=== PATIENT | female | born 1960 | race Caucasian/White ===

== ENCOUNTER → 2017-01-09 | Outpatient (CLI) | payer OTHER ==
[~2017-01-09] MED LIST: LRT5 PO; NITR-5 PO
== END | disposition home or self-care (01) ==
LOC: C.LABSPEC 17:03
PROVIDERS: ATTEND Internal Medicine
DX: R39.9 Unspecified symptoms and signs involving the genitourinary system (principal)

== ENCOUNTER 2020-08-14 02:16 | Observation (INO) ==
[2020-08-14] MEDS ORDERED: dilTIAZem HCl 5 MG/ML 5 ML VIAL IV STA (02:26)
[2020-08-14] MEDS ORDERED: STAT IV Infusion **Titration per Protocol STA (02:26)
[2020-08-14] MEDS ORDERED: SODIUM CHLORIDE 0.9% 1000ML 1,000 ML IV SCH (02:30)
[2020-08-14] MEDS ORDERED: dilTIAZem HCL 125 MG in DEXTROSE 5% 100 ML IV SCH (02:30)
[2020-08-14 02:48] LABS: Hematocrit (blood only) 31.2 % (37-47); Hemoglobin 10.2 g/dL (12.0-16.0); Mean Corpuscular Hemoglobin 29.3 pg (25-34); Mean Corpuscular Hgb Conc 32.7 g/dL (32-36); Mean Corpuscular Volume 89.7 fL (80-100); Mean Platelet Volume 8.1 fL (7.4-10.4); Platelet Count 495 K/uL (130-400); RDW Standard Deviation 52.3 fL (36.4-46.3); Red Blood Count 3.48 M/uL (4.2-5.4)
[2020-08-14 03:09] LABS: INR 1.2 (0.9-1.1); Partial Thromboplastin Ratio 1.7; Prothrombin Time 12.6 Seconds (9.0-12.0)
[2020-08-14 03:14] LABS: Albumin Level 2.2 gm/dl (3.4-5.0); BUN Creatinine Ratio 18.5 (10-20); Calcium 8.8 mg/dl (8.5-10.1); Creatinine Clr Calc Pharmacy 90.5 ml/min; Est GFR (African American) 99.7; Magnesium 2.4 mg/dl (1.8-2.4)
[2020-08-14 03:16] LABS: Partial Thromboplastin Time 46.6 Seconds (21.0-31.0)
[2020-08-14] MEDS ORDERED: POTASSIUM CHLORIDE CRTAB 20 MEQ TABCR PO STA (03:16)
[2020-08-14 03:27] LABS: Albumin Globulin Ratio 0.4 (0.9-2); Bilirubin,Total 0.3 mg/dl (0.2-1); Globulin 5.3 gm/dl (2.5-4.0); Thyroid Stimulating Hormone 1.11 uIu/ml (0.300-4.500); Total Protein 7.5 gm/dl (6.4-8.2); Troponin I 0.021 ng/ml (0-0.045)
[2020-08-14] MEDS: POTASSIUM CHLORIDE / WTR 10 MEQ/100 ML PLCT IV SCH ×2 (03:29→04:26)
[2020-08-14 03:44] LABS: Basophils # (auto) 0.01 K/uL (0-0.2); Basophils % (auto) 0.1 %; Eosinophils # (auto) 0.27 K/uL (0-0.5); Eosinophils % (auto) 2.4 %; Immature Granulocytes # (auto) 0.75 K/uL (0.00-0.02); Immature Granulocytes % (auto) 6.8 %; Lymphocytes # (auto) 1.77 K/uL (1.2-3.4); Lymphocytes % (auto) 15.9 %; Monocytes # (auto) 0.96 K/uL (0.11-0.59); Monocytes % (auto) 8.6 %; Neutrophils # (auto) 7.34 K/uL (1.4-6.5); Neutrophils % (auto) 66.2 %
[2020-08-14] MEDS ORDERED: ACETAMINOPHEN 500 MG TAB PO STA (04:16)
[2020-08-14 04:30] LABS: Appearance Urine Clear (Clear); Bacteria Urine Automated Negative (Negative); Bilirubin Urine Negative (Negative); Blood Urine Negative (Negative); Color Urine Yellow; Epithelial Cell Urine Auto >30 /lpf (0-5); Glucose Urine UA Negative (Negative); Ketones Urine Trace (Negative); Leukocyte Esterase Urine Trace (Negative); Nitrite Urine Negative (Negative); Protein Urine Negative (Negative); RBC Urine Automated 0-4 /hpf (0-4); Specific Gravity Urine 1.013 (1.000-1.030); Urobilinogen Urine Negative (Negative)
--- NOTE | 2020-08-14 04:42 | History & Physical Report ---
Date of Service August 14, 2020 Assessment & Plan (1) Atrial fibrillation with rapid ventricular response: Atrial fibrillation with RVR- The patient will be admitted to telemetry for serial cardiac enzymes, serial EKG's, cardiac rhythm monitoring and a 2-D echocardiogram with Dopplers. Optimize potassium with oral and IV supplementation. Given Cardizem 25 mg IV bolus and presently on Cardizem drip at 5 mg/h. Present on Admission?: Yes (2) Hypokalemia: As above Present on Admission?: Yes (3) History of recent stroke: History of recent hemorrhagic stroke/on dabigatran therapy- Plan would be for return to [facility] after hospitalization Continue baclofen, duloxetine, gabapentin and Keppra. Present on Admission?: Yes (4) On dabigatran therapy: See above Present on Admission?: Yes (5) Diabetes mellitus: Placed on Accu-Cheks before meals and at bedtime with NovoLog coverage per scale Present on Admission?: Yes (6) Depression: Continue duloxetine and gabapentin Present on Admission?: Yes (7) Non-specific colitis: Continue mesalamine and prednisone. Hold on stress dose steroids for now Present on Admission?: Yes History of Present Illness Chief Complaint: The patient is referred from [facility], where she was found to have atrial fibrillation with RVR during routine vitals assessment this evening Primary Care Provider: TRAE Gomes The patient is a 60-year-old female with a past medical history including dural sinus thrombosis, intraparenchymal hemorrhage of brain, acute left-sided weakness, colitis, obesity, vitamin D deficiency, acid reflux, occipital neuralgia, depression and chronic migraine with aura. The patient had presented to [facility] emergency department on 07/27/2020 and was diagnosed with an acute stroke. She was referred to [facility], after treatment there was referred to [facility]. As noted above, she was found to be in atrial fibrillation with RVR during routine vitals assessment this evening and sent to the emergency department for assessment. Patient denies any recent episodes of palpitations, and denies any history of atrial fibrillation. Allergies Allergy/AdvReac Type Severity Reaction Status Date / Time montelukast [From Singulair] Allergy Mild "pains in Verified 07/27/20 08:38 stomach" Home Medications Medication Instructions Recorded Confirmed Type hydrocortisone 2.5 % topical cream 1 appln VA BID PRN #30 gm 01/06/20 08/14/20 Rx with perineal applicator pantoprazole 40 mg PO DAILYBB 07/09/20 08/14/20 History prednisone 10 mg tablet 10 mg PO DAILY #124 tab 07/19/20 08/14/20 Rx acetaminophen 650 mg PO Q4 PRN 08/14/20 08/14/20 History ascorbic acid (vitamin C) [Vitamin 500 mg PO BID 08/14/20 08/14/20 History C] baclofen 5 mg PO TID 08/14/20 08/14/20 History calcium carbonate [Tums 500] 500 mg PO TID PRN 08/14/20 08/14/20 History cholecalciferol (vitamin D3) 50 mcg PO DAILY 08/14/20 08/14/20 History [Vitamin D3] dabigatran etexilate [Pradaxa] 150 mg PO BID 08/14/20 08/14/20 History docusate sodium 100 mg PO BID 08/14/20 08/14/20 History duloxetine 30 mg PO BID 08/14/20 08/14/20 History famotidine 20 mg PO DAILY 08/14/20 08/14/20 History gabapentin 300 mg PO HS 08/14/20 08/14/20 History hydrocortisone acetate [Anusol-HC] 25 mg VA HS 08/14/20 08/14/20 History insulin regular human [Humulin R 1 sliding scale dose SUBCUT ACHS 08/14/20 08/14/20 History Regular U-100 Insuln] levetiracetam 1,000 mg PO BID 08/14/20 08/14/20 History lidocaine [Lidoderm] 1 patch TOPICAL DAILY 08/14/20 08/14/20 History melatonin 3 mg PO HS 08/14/20 08/14/20 History mesalamine 400 mg PO QID 08/14/20 08/14/20 History ondansetron 4 mg PO Q4 PRN 08/14/20 08/14/20 History sulfamethoxazole-trimethoprim 1 tab PO BID 08/14/20 08/14/20 History [Bactrim DS] zinc sulfate 220 mg PO DAILY 08/14/20 08/14/20 History Past Med/Surg History Medical History Abdominal pain, vomiting, and diarrhea reason for scheduled colonoscopy Chronic migraine with aura Degenerative disc disease Depression Hypoalbuminemia Menopause Obesity Recent urinary tract infection reason for macrobid bid Sleep apnea not using cpap as ordered Tinea corporis Surgical History History of colonoscopy with polypectomy last 03/2019 History of cone biopsy of cervix benign History of endometrial ablation History of esophagogastroduodenoscopy (EGD) History of tonsillectomy Family History Mother Family history of diabetes mellitus Other No family history of adverse response to anesthesia Social History Smoking Status: Former smoker Tobacco Type: Cigarettes Cigarettes Per Day: 10 a day; Second Hand Exposure: Yes (father smoked/ smokes); Hx Alcohol Use: No Hx Substance Use: No Preferred Language: Georgian Communication Ability: Effective Insurance Account Assistant Required: No Beliefs That Will Affect Care: None Current Living Situation: Spouse Feels Safe at Home: Yes Assistive Devices: Glasses Review of Systems Review of Systems: The patient denies chest pain, palpitations, shortness of breath, dyspnea on exertion, cough, lower extremity swelling, sore throat, fevers, chills, sweats, weight change, fatigue, nausea, vomiting, diarrhea , constipation, abdominal pain, pelvic pain, blood in urine or stool, dysuria, urinary frequency or urgency, lightheadedness, dizziness, headache, loss of consciousness, rash, abnormal bruising or bleeding, generalized weakness, generalized arthralgias or myalgias, back or neck pain, or night sweats. The review of systems is otherwise negative other than for that already noted above, and at least 10 systems have been reviewed. Physical Exam Physical Exam: The patient is awake, alert and oriented 3, well developed and well nourished, normocephalic and atraumatic, lying in bed and in no acute dis tress. HEENT--PERRL, EOMI, mucous membranes and oropharynx dry. Neck--supple. No JVD. No bruits. Thyroid normal, trachea midline, no adenopathy. Heart--irregularly irregular. No murmurs, rubs or gallops. Lungs--clear bilaterally, no respiratory distress, no accessory muscle use. Abdomen--normal bowel sounds and soft. Nontender. Nondistended. Extremities--no cyanosis or clubbing. No edema. Dermatologic--normal skin turgor, normal color, no abnormal lymph nodes, no rash. Neurologic--residual left-sided weakness Rheumatologic--decreased range of motion associated with left-sided weakness Psychiatric--normal affect. Results & Data Results & Data ([facility]) Vital Signs (Past 12 Hours) Vital Signs Temp Pulse Pulse Resp BP BP Pulse Ox 08/14/20 04:41 108 H 20 117/78 98 08/14/20 04:03 122 H 20 118/73 99 08/14/20 03:35 108 H 20 107/73 92 08/14/20 03:07 116 H 2 L 96/82 L 98 08/14/20 02:52 151 H 17 120/71 95 08/14/20 02:51 136 H 16 82/64 L 94 08/14/20 02:45 163 H 21 90/66 L 96 08/14/20 02:44 141 H 18 95/71 L 95 08/14/20 02:23 97.9 F 120 H 16 95/74 L 96 Laboratory Results Laboratory Results WBC 11.10 K/uL (4.8-10.8) H 08/14/20 02:37 RBC 3.48 M/uL (4.2-5.4) L 08/14/20 02:37 Hgb 10.2 g/dL (12.0-16.0) L 08/14/20 02:37 Hct 31.2 % (37-47) L 08/14/20 02:37 MCV 89.7 fL (80-100) 08/14/20 02:37 MCH 29.3 pg (25-34) 08/14/20 02:37 MCHC 32.7 g/dL (32-36) 08/14/20 02:37 RDW Std Deviation 52.3 fL (36.4-46.3) H 08/14/20 02:37 RDW Coeff of Russ 16.0 % (11.5-14.5) H 08/14/20 02:37 Plt Count 495 K/uL (130-400) H 08/14/20 02:37 MPV 8.1 fL (7.4-10.4) 08/14/20 02:37 Immature Gran % (Auto) 6.8 % 08/14/20 02:37 Neut % (Auto) 66.2 % 08/14/20 02:37 Lymph % (Auto) 15.9 % 08/14/20 02:37 [place] % (Auto) 8.6 % 08/14/20 02:37 Eos % (Auto) 2.4 % 08/14/20 02:37 Baso % (Auto) 0.1 % 08/14/20 02:37 Neut # (Auto) 7.34 K/uL (1.4-6.5) H 08/14/20 02:37 Lymph # (Auto) 1.77 K/uL (1.2-3.4) 08/14/20 02:37 [place] # (Auto) 0.96 K/uL (0.11-0.59) H 08/14/20 02:37 Eos # (Auto) 0.27 K/uL (0-0.5) 08/14/20 02:37 Baso # (Auto) 0.01 K/uL (0-0.2) 08/14/20 02:37 Immature Gran # (Auto) 0.75 K/uL (0.00-0.02) H 08/14/20 02:37 PT 12.6 Seconds (9.0-12.0) H 08/14/20 02:37 INR 1.2 (0.9-1.1) H 08/14/20 02:37 APTT 46.6 Seconds (21.0-31.0) H* 08/14/20 02:37 PTT Ratio 1.7 08/14/20 02:37 Sodium 134 mmol/L (136-145) L 08/14/20 02:37 Potassium 3.0 mmol/L (3.5-5.1) L 08/14/20 02:37 Chloride 101 mmol/L (98-107) 08/14/20 02:37 Carbon Dioxide 24 mmol/L (21-32) 08/14/20 02:37 Anion Gap 9.0 (3-11) 08/14/20 02:37 BUN 14 mg/dl (7-18) 08/14/20 02:37 Creatinine 0.75 mg/dl (0.6-1.2) 08/14/20 02:37 Est Cr Clr Drug Dosing 90.5 ml/min 08/14/20 02:37 Est GFR ( Amer) 99.7 08/14/20 02:37 Est GFR (Non-Af Amer) 86.0 08/14/20 02:37 BUN/Creatinine Ratio 18.5 (10-20) 08/14/20 02:37 Glucose 93 mg/dl (70-99) 08/14/20 02:37 Calcium 8.8 mg/dl (8.5-10.1) 08/14/20 02:37 Magnesium 2.4 mg/dl (1.8-2.4) 08/14/20 02:37 Total Bilirubin 0.3 mg/dl (0.2-1) 08/14/20 02:37 AST 12 U/L (15-37) L 08/14/20 02:37 ALT 18 U/L (12-78) 08/14/20 02:37 Alkaline Phosphatase 71 U/L (45-117) 08/14/20 02:37 Troponin I 0.021 ng/ml (0-0.045) 08/14/20 02:37 Total Protein 7.5 gm/dl (6.4-8.2) 08/14/20 02:37 Albumin 2.2 gm/dl (3.4-5.0) L 08/14/20 02:37 Globulin 5.3 gm/dl (2.5-4.0) H 08/14/20 02:37 Albumin/Globulin Ratio 0.4 (0.9-2) L 08/14/20 02:37 Lipase 124 U/L (73-393) 08/14/20 02:37 TSH 1.110 uIu/ml (0.300-4.500) 08/14/20 02:37 Urine Color Yellow 08/14/20 04:00 Urine Appearance Clear (Clear) 08/14/20 04:00 Urine pH 6.0 (4.5-7.5) 08/14/20 04:00 Ur Specific [place] 1.013 (1.000-1.030) 08/14/20 04:00 Urine Protein Negative (Negative) 08/14/20 04:00 Urine Glucose (UA) Negative (Negative) 08/14/20 04:00 Urine Ketones Trace (Negative) H 08/14/20 04:00 Urine Blood Negative (Negative) 08/14/20 04:00 Urine Nitrite Negative (Negative) 08/14/20 04:00 Urine Bilirubin Negative (Negative) 08/14/20 04:00 Urine Urobilinogen Negative (Negative) 08/14/20 04:00 Ur Leukocyte Esterase Trace (Negative) H 08/14/20 04:00 Urine WBC (Auto) 1-5 /hpf (0-5) 08/14/20 04:00 Urine RBC (Auto) 0-4 /hpf (0-4) 08/14/20 04:00 U Hyaline Cast (Auto) 1-5 /lpf (0-5) 08/14/20 04:00 U Epithel Cells (Auto) >30 /lpf (0-5) H 08/14/20 04:00 Urine Bacteria (Auto) Negative (Negative) 08/14/20 04:00 SARS-CoV-2 Ag (Rapid) Negative (Negative) 08/14/20 04:20 Code Status & VTE Plan Code Status Full code VTE Prophylaxis Plan VTE Prophylaxis will be ordered: Yes PG Care Time/CCT Total # of Minutes Spent Total Time Spent with Patient: Total time spent is greater than 50% in coordination of care (as documented) at patient's floor/unit and/or counseling patient: Coding Level of Care Code 85530 Initial Inpt Care Lvl 3 Diagnoses Atrial fibrillation with rapid ventricular response I48.91 Hypokalemia E87.6 History of recent stroke Z86.73 On dabigatran therapy Z79.01 Diabetes mellitus E11.9 Depression F32.9 Non-specific colitis K52.9
--- NOTE | 2020-08-14 05:46 | Emergency Department Note ---
History of Present Illness General Chief complaint: Cardiac Assessment Stated complaint: Cardiac symptoms Time Seen by Provider: 08/14/20 02:23 History of Present Illness Maximum Pain Intensity: 2 This is a 60-year-old female presenting to the emergency department for evaluation of cardiac symptoms. The patient has a fairly complicated recent medical history including stroke and dural venous thrombosis where she was transferred to [facility] on 07/27/2020. Evidently the patient did well at [facility], and they began her on Pradaxa, and she was discharged to [facility] locally. The patient does have some residual left- sided deficit, but is overall recovering well. 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 EMS was contacted and the patient was found to be in A. fib with RVR. On presentation the patient does not have any new complaints. She does feel tired, but this is not new. She is not having head, neck, chest, or extremity pain. No breathing difficulties. She rates her current discomfort a 0/10. Home Medications Medication Instructions Recorded Confirmed Type hydrocortisone 2.5 % topical cream 1 appln WA BID PRN #30 gm 01/06/20 08/14/20 Rx with perineal applicator pantoprazole 40 mg PO DAILYBB 07/09/20 08/14/20 History prednisone 10 mg tablet 10 mg PO DAILY #124 tab 07/19/20 08/14/20 Rx acetaminophen 650 mg PO Q4 PRN 08/14/20 08/14/20 History ascorbic acid (vitamin C) [Vitamin 500 mg PO BID 08/14/20 08/14/20 History C] baclofen 5 mg PO TID 08/14/20 08/14/20 History calcium carbonate [Tums 500] 500 mg PO TID PRN 08/14/20 08/14/20 History cholecalciferol (vitamin D3) 50 mcg PO DAILY 08/14/20 08/14/20 History [Vitamin D3] dabigatran etexilate [Pradaxa] 150 mg PO BID 08/14/20 08/14/20 History docusate sodium 100 mg PO BID 08/14/20 08/14/20 History duloxetine 30 mg PO BID 08/14/20 08/14/20 History famotidine 20 mg PO DAILY 08/14/20 08/14/20 History gabapentin 300 mg PO HS 08/14/20 08/14/20 History hydrocortisone acetate [Anusol-HC] 25 mg WA HS 08/14/20 08/14/20 History insulin regular human [Humulin R 1 sliding scale dose SUBCUT ACHS 08/14/20 08/14/20 History Regular U-100 Insuln] levetiracetam 1,000 mg PO BID 08/14/20 08/14/20 History lidocaine [Lidoderm] 1 patch TOPICAL DAILY 08/14/20 08/14/20 History melatonin 3 mg PO HS 08/14/20 08/14/20 History mesalamine 400 mg PO QID 08/14/20 08/14/20 History ondansetron 4 mg PO Q4 PRN 08/14/20 08/14/20 History sulfamethoxazole-trimethoprim 1 tab PO BID 08/14/20 08/14/20 History [Bactrim DS] zinc sulfate 220 mg PO DAILY 08/14/20 08/14/20 History Allergies Allergy/AdvReac Type Severity Reaction Status Date / Time montelukast [From Singulair] Allergy Mild "pains in Verified 07/27/20 08:38 stomach" Past Med/Surg History Medical History Abdominal pain, vomiting, and diarrhea reason for scheduled colonoscopy Chronic migraine with aura Degenerative disc disease Depression Hypoalbuminemia Menopause Obesity Recent urinary tract infection reason for macrobid bid Sleep apnea not using cpap as ordered Tinea corporis Surgical History History of colonoscopy with polypectomy last 03/2019 History of cone biopsy of cervix benign History of endometrial ablation History of esophagogastroduodenoscopy (EGD) History of tonsillectomy Family History Mother Family history of diabetes mellitus Other No family history of adverse response to anesthesia Social History Smoking Status: Former smoker Tobacco Type: Cigarettes Cigarettes Per Day: 10 a day; Second Hand Exposure: Yes (father smoked/ smokes); Hx Alcohol Use: No Hx Substance Use: No Preferred Language: Danish Communication Ability: Effective Self Pay Representative Required: No Beliefs That Will Affect Care: None Current Living Situation: Spouse Feels Safe at Home: Yes Assistive Devices: Glasses Review of Systems A total of 10 systems reviewed and were otherwise negative Physical Exam Vital Signs Vital Signs - 24 hr 08/14/20 02:23 08/14/20 02:44 08/14/20 02:45 Temperature 36.6 C Temperature Source Oral Pulse Rate 120 H 141 H 163 H Pulse Rate [Bilateral Apical] Pulse Rate from SpO2 Sensor 114 H 140 H Respiratory Rate 16 18 21 Blood Pressure 95/74 L 95/71 L 90/66 L Blood Pressure [Right Arm] Blood Pressure Mean 81 90 70 Blood Pressure Mean [Right Arm] Blood Pressure Position Lying Pulse Oximetry 96 95 96 Oxygen Delivery Method Room Air Sepsis Recent Fever Within 48 Hours No Sepsis New/Unexplained Change in Mental Status No Sepsis Action Taken by Nursing No Action Required 08/14/20 02:51 08/14/20 02:52 08/14/20 03:07 Temperature Temperature Source Pulse Rate 136 H 151 H Pulse Rate [Bilateral Apical] 116 H Pulse Rate from SpO2 Sensor 135 H 118 H Respiratory Rate 16 17 2 L Blood Pressure 82/64 L 120/71 Blood Pressure [Right Arm] 96/82 L Blood Pressure Mean 71 91 Blood Pressure Mean [Right Arm] 86 Blood Pressure Position Pulse Oximetry 94 95 98 Oxygen Delivery Method Room Air Room Air Sepsis Recent Fever Within 48 Hours Sepsis New/Unexplained Change in Mental Status Sepsis Action Taken by Nursing 08/14/20 03:35 08/14/20 04:03 08/14/20 04:41 Temperature Temperature Source Pulse Rate Pulse Rate [Bilateral Apical] 108 H 122 H 108 H Pulse Rate from SpO2 Sensor Respiratory Rate 20 20 20 Blood Pressure Blood Pressure [Right Arm] 107/73 118/73 117/78 Blood Pressure Mean Blood Pressure Mean [Right Arm] 84 88 91 Blood Pressure Position Pulse Oximetry 92 99 98 Oxygen Delivery Method Room Air Room Air Room Air Sepsis Recent Fever Within 48 Hours Sepsis New/Unexplained Change in Mental Status Sepsis Action Taken by Nursing 08/14/20 05:23 Temperature Temperature Source Pulse Rate Pulse Rate [Bilateral Apical] 114 H Pulse Rate from SpO2 Sensor Respiratory Rate 20 Blood Pressure Blood Pressure [Right Arm] 101/75 Blood Pressure Mean Blood Pressure Mean [Right Arm] 83 Blood Pressure Position Pulse Oximetry 99 Oxygen Delivery Method Room Air Sepsis Recent Fever Within 48 Hours Sepsis New/Unexplained Change in Mental Status Sepsis Action Taken by Nursing VITALS: Vitals are noted on the nurse's note and reviewed by myself. Vital signs with noted tachycardia GENERAL: Well-developed, well-nourished, white female, who is pleasant and cooperative. She does not appear in acute distress. HEAD: Normocephalic atraumatic. NECK: Supple without nuchal rigidity. No lymphadenopathy. No thyromegaly. Cervical spine is nontender. HEART: Irregularly irregular with rapid rate LUNGS: Clear to auscultation bilaterally without wheezes, rales or rhonchi. No retractions or accessory muscle use. MUSCULOSKELETAL: No muscle atrophy, erythema, or edema noted. NEURO: Patient was alert and oriented to person place and time. SKIN: The skin was without rashes, erythema, edema, or bruising. Course Administered Medications Diltiazem HCl 125 mg/ Dextrose 125 mls @ 5 mls/hr IV .Q24H KATHLEEN; Protocol Stop: 09/13/20 02:29 Last Admin: 08/14/20 02:43 Dose: 5 mg/hr, 5 mls/hr Documented by: [id number] Cosigned by: [id number] Discontinued Medications Acetaminophen (Acetaminophen 500 Mg Tab) 1,000 mg PO NOW STA Stop: 08/14/20 04:17 Last Admin: 08/14/20 04:26 Dose: 1,000 mg Documented by: [id number] Diltiazem HCl (Diltiazem Hcl 5 Mg/Ml 5 Ml Vial) 24 mg IV NOW STA Stop: 08/14/20 02:27 Last Admin: 08/14/20 02:44 Dose: 24 mg Documented by: [id number] Cosigned by: [id number] Sodium Chloride (Nss 1000ml) 1,000 mls @ 999 mls/hr IV .Q1H1M KATHLEEN Stop: 08/14/20 03:30 Last Infusion: 08/14/20 03:54 Dose: 0 mls/hr Documented by: [id number] Admin: 08/14/20 02:45 Dose: 999 mls/hr Documented by: [id number] Potassium Chloride (K Jeremías / Wtr) 10 meq in 100 mls @ 100 mls/hr IV Q1H KATHLEEN Stop: 08/14/20 05:29 Last Infusion: 08/14/20 05:26 Dose: 0 mls/hr Documented by: [id number] Admin: 08/14/20 04:26 Dose: 100 mls/hr Documented by: [id number] Infusion: 08/14/20 04:25 Dose: 0 mls/hr Documented by: [id number] Admin: 08/14/20 03:29 Dose: 100 mls/hr Documented by: [id number] Miscellaneous (Stat Iv Infusion Titration Per Protocol) 1 ea N/A NOW STA Stop: 08/14/20 02:27 Last Admin: 08/14/20 03:00 Dose: Not Given Documented by: [id number] Potassium Chloride (Potassium Chloride Crtab 20 Meq Tabcr) 40 meq PO NOW STA Stop: 08/14/20 03:17 Last Admin: 08/14/20 03:28 Dose: 40 meq Documented by: [id number] Medical Decision Making Differential Diagnosis Differential diagnosis includes, but is not limited to: Myocardial infarction, dysrhythmia, pericarditis, pneumothorax, aortic aneurysm/dissection, DVT/PE, anxiety, GERD, PUD, electrolyte imbalance, thyroid disorder, pneumonia, bronchitis, pancreatitis, and others Laboratory Data Result diagrams: 08/14/20 02:37 08/14/20 02:37 Lab Results 08/14/20 08/14/20 08/14/20 Range/Units 02:37 02:37 02:37 WBC 11.10 H (4.8-10.8) K/uL RBC 3.48 L (4.2-5.4) M/uL Hgb 10.2 L (12.0-16.0) g/dL Hct 31.2 L (37-47) % MCV 89.7 (80-100) fL MCH 29.3 (25-34) pg MCHC 32.7 (32-36) g/dL RDW Std Deviation 52.3 H (36.4-46.3) fL RDW Coeff of Russ 16.0 H (11.5-14.5) % Plt Count 495 H (130-400) K/uL MPV 8.1 (7.4-10.4) fL Immature Gran % (Auto) 6.8 % Neut % (Auto) 66.2 % Lymph % (Auto) 15.9 % Gaines % (Auto) 8.6 % Eos % (Auto) 2.4 % Baso % (Auto) 0.1 % Neut # (Auto) 7.34 H (1.4-6.5) K/uL Lymph # (Auto) 1.77 (1.2-3.4) K/uL Gaines # (Auto) 0.96 H (0.11-0.59) K/uL Eos # (Auto) 0.27 (0-0.5) K/uL Baso # (Auto) 0.01 (0-0.2) K/uL Immature Gran # (Auto) 0.75 H (0.00-0.02) K/uL PT 12.6 H (9.0-12.0) Seconds INR 1.2 H (0.9-1.1) APTT 46.6 H* (21.0-31.0) Seconds PTT Ratio 1.7 Sodium 134 L (136-145) mmol/L Potassium 3.0 L (3.5-5.1) mmol/L Chloride 101 (98-107) mmol/L Carbon Dioxide 24 (21-32) mmol/L Anion Gap 9.0 (3-11) BUN 14 (7-18) mg/dl Creatinine 0.75 (0.6-1.2) mg/dl Est Cr Clr Drug Dosing 90.5 ml/min Est GFR ( Amer) 99.7 Est GFR (Non-Af Amer) 86.0 BUN/Creatinine Ratio 18.5 (10-20) Glucose 93 (70-99) mg/dl Calcium 8.8 (8.5-10.1) mg/dl Magnesium 2.4 (1.8-2.4) mg/dl Total Bilirubin 0.3 (0.2-1) mg/dl AST 12 L (15-37) U/L ALT 18 (12-78) U/L Alkaline Phosphatase 71 (45-117) U/L Troponin I 0.021 (0-0.045) ng/ml Total Protein 7.5 (6.4-8.2) gm/dl Albumin 2.2 L (3.4-5.0) gm/dl Globulin 5.3 H (2.5-4.0) gm/dl Albumin/Globulin Ratio 0.4 L (0.9-2) Lipase 124 (73-393) U/L TSH 1.110 (0.300-4.500) uIu/ml Urine Color Urine Appearance (Clear) Urine pH (4.5-7.5) Ur Specific Arpin (1.000-1.030) Urine Protein (Negative) Urine Glucose (UA) (Negative) Urine Ketones (Negative) Urine Blood (Negative) Urine Nitrite (Negative) Urine Bilirubin (Negative) Urine Urobilinogen (Negative) Ur Leukocyte Esterase (Negative) Urine WBC (Auto) (0-5) /hpf Urine RBC (Auto) (0-4) /hpf U Hyaline Cast (Auto) (0-5) /lpf U Epithel Cells (Auto) (0-5) /lpf Urine Bacteria (Auto) (Negative) SARS-CoV-2 Ag (Rapid) (Negative) 08/14/20 08/14/20 Range/Units 04:00 04:20 WBC (4.8-10.8) K/uL RBC (4.2-5.4) M/uL Hgb (12.0-16.0) g/dL Hct (37-47) % MCV (80-100) fL MCH (25-34) pg MCHC (32-36) g/dL RDW Std Deviation (36.4-46.3) fL RDW Coeff of Russ (11.5-14.5) % Plt Count (130-400) K/uL MPV (7.4-10.4) fL Immature Gran % (Auto) % Neut % (Auto) % Lymph % (Auto) % Gaines % (Auto) % Eos % (Auto) % Baso % (Auto) % Neut # (Auto) (1.4-6.5) K/uL Lymph # (Auto) (1.2-3.4) K/uL Gaines # (Auto) (0.11-0.59) K/uL Eos # (Auto) (0-0.5) K/uL Baso # (Auto) (0-0.2) K/uL Immature Gran # (Auto) (0.00-0.02) K/uL PT (9.0-12.0) Seconds INR (0.9-1.1) APTT (21.0-31.0) Seconds PTT Ratio Sodium (136-145) mmol/L Potassium (3.5-5.1) mmol/L Chloride (98-107) mmol/L Carbon Dioxide (21-32) mmol/L Anion Gap (3-11) BUN (7-18) mg/dl Creatinine (0.6-1.2) mg/dl Est Cr Clr Drug Dosing ml/min Est GFR ( Amer) Est GFR (Non-Af Amer) BUN/Creatinine Ratio (10-20) Glucose (70-99) mg/dl Calcium (8.5-10.1) mg/dl Magnesium (1.8-2.4) mg/dl Total Bilirubin (0.2-1) mg/dl AST (15-37) U/L ALT (12-78) U/L Alkaline Phosphatase (45-117) U/L Troponin I (0-0.045) ng/ml Total Protein (6.4-8.2) gm/dl Albumin (3.4-5.0) gm/dl Globulin (2.5-4.0) gm/dl Albumin/Globulin Ratio (0.9-2) Lipase (73-393) U/L TSH (0.300-4.500) uIu/ml Urine Color Yellow Urine Appearance Clear (Clear) Urine pH 6.0 (4.5-7.5) Ur Specific Arpin 1.013 (1.000-1.030) Urine Protein Negative (Negative) Urine Glucose (UA) Negative (Negative) Urine Ketones Trace H (Negative) Urine Blood Negative (Negative) Urine Nitrite Negative (Negative) Urine Bilirubin Negative (Negative) Urine Urobilinogen Negative (Negative) Ur Leukocyte Esterase Trace H (Negative) Urine WBC (Auto) 1-5 (0-5) /hpf Urine RBC (Auto) 0-4 (0-4) /hpf U Hyaline Cast (Auto) 1-5 (0-5) /lpf U Epithel Cells (Auto) >30 H (0-5) /lpf Urine Bacteria (Auto) Negative (Negative) SARS-CoV-2 Ag (Rapid) Negative (Negative) ECG Data Additional Comments: Atrial fibrillation with rapid ventricular response @[address] elevation Abnormal ECG When compared with ECG of 27-JUL-2020 08:20, Atrial fibrillation has replaced Sinus rhythm Vent. rate has increased BY 56 BPM MDM Narrative Physical exam and history were performed. Nursing notes, EMR, and Medication List were personally reviewed. Patient appears to have atrial fibrillation with RVR. She has a complicated recent medical history including intracranial bleed and dural venous thrombosis. IV access was established and labs were obtained. The patient was hydrated normal saline and started on a Cardizem drip with bolus. An order was placed for continuous cardiac monitoring. The monitor shows a rate of 114 with atrial fibrillation rhythm. Patient's blood work is as above and was reviewed. He does not have a significantly elevated white blood cell count or gross anemia. Her potassium is low at 3.0, and this was repleted both orally and through her IV. BUN and creatinine are normal. Transaminases are not diagnostic. She does have a detectable, although technically not elevated troponin at 0.021. TSH shows euthyroid state. Urine is without gross evidence of infection. Covid was performed and negative. The patient was reevaluated multiple times throughout the course of her stay. She continues to not appear toxic, and she does not have complaints. I do have concern regarding her atrial fibrillation, which does appear new when compared to all known EKGs that we have at this facility. The case was discussed with the on-call hospitalist team, who agreed to evaluate her here in the ER. Please see their dictation for further patient course, plan, and disposition. The chart was completed utilizing [employer] Voice Recognition Software. Grammatical errors, random word insertions, pronoun errors, and incomplete sentences are an occasional consequence of this system due to software limitations, ambient noise, and hardware issues. Any formal questions or concerns about the content, text, or information contained within the body of this dictation should be directly addressed to the provider for clarification. . Impression & Plan Atrial fibrillation with rapid ventricular response, Hypokalemia, History of recent stroke, On dabigatran therapy Discharge Plan Visit Data Chief Complaint: Cardiac Assessment Stated Complaint: Cardiac symptoms ED Provider: Saranya Guadalupe ED Midlevel Provider: Onel Limon Discharge Problem: Atrial fibrillation with rapid ventricular response, Hypokalemia, History of recent stroke, On dabigatran therapy Forms Stand Alone Forms: My [facility] TigerText Prescriptions Prescriptions: No Action prednisone 10 mg tablet 10 mg PO DAILY Qty: 124 RF: 0 hydrocortisone [Proctosol HC] 2.5 % cream with perineal applicator 1 appln WA BID PRN (Reason: hemorrhoids) Qty: 30 RF: 1 pantoprazole 40 mg tablet,delayed release (DR/EC) 40 mg PO DAILYBB RF: 0 melatonin 3 mg Tablet 3 mg PO HS RF: 0 docusate sodium 100 mg Capsule 100 mg PO BID RF: 0 mesalamine 400 mg capsule (with del rel tablets) 400 mg PO QID RF: 0 gabapentin 300 mg Capsule 300 mg PO HS RF: 0 famotidine 20 mg Tablet 20 mg PO DAILY RF: 0 duloxetine 30 mg Capsule,Delayed Release(Dr/Ec) 30 mg PO BID RF: 0 levetiracetam 1,000 mg Tablet 1,000 mg PO BID RF: 0 zinc sulfate 220 (50) mg Capsule 220 mg PO DAILY RF: 0 sulfamethoxazole-trimethoprim [Bactrim DS] 800-160 mg Tablet 1 tab PO BID RF: 0 ascorbic acid (vitamin C) [Vitamin C] 500 mg Tablet 500 mg PO BID RF: 0 lidocaine [Lidoderm] 5 % Adhesive Patch,Medicated 1 patch TOPICAL DAILY RF: 0 ondansetron 4 mg Tablet,Disintegrating 4 mg PO Q4 PRN (Reason: Nausea And Vomiting) RF: 0 cholecalciferol (vitamin D3) [Vitamin D3] 50 mcg (2,000 unit) Capsule 50 mcg PO DAILY RF: 0 Pradaxa 150 mg Capsule 150 mg PO BID RF: 0 baclofen 5 mg Tablet 5 mg PO TID RF: 0 hydrocortisone acetate [Anusol-HC] 25 mg Suppository 25 mg WA HS RF: 0 acetaminophen 325 mg Tablet 650 mg PO Q4 PRN (Reason: Pain) RF: 0 Humulin R Regular U-100 Insuln 100 unit/mL Solution 1 sliding scale dose SUBCUT ACHS RF: 0 calcium carbonate [Tums 500] 500 mg calcium (1,250 mg) Tablet,Chewable 500 mg PO TID PRN (Reason: Indigestion) RF: 0 Referrals Referrals: Gabriela Dowling CRNP [Primary Care Provider] -
[2020-08-14] MEDS ORDERED: ACETAMINOPHEN 325 MG TAB PO PRN (06:01)
[2020-08-14] MEDS ORDERED: ONDANSETRON INJ 2 MG/ML 2 ML VIAL IV PRN (06:01)
[2020-08-14] MEDS ORDERED: NSS + 20MEQ KCL 20 MEQ/1,000 ML BAG IV SCH (06:01)
[2020-08-14] MEDS ORDERED: HYDROCORTISONE HC 2.5% CRM 30GM TUBE EXT PRN (06:01)
[2020-08-14] MEDS ORDERED: NSS+KCL 20 MEQ 1000ML IV ONE (06:05)
[2020-08-14] MEDS ORDERED: PANTOprazole 40 MG TAB ONE (06:05)
[2020-08-14] MEDS ORDERED: FAMOTIDINE 20MG/5ML IV PUSH IV ONE (06:14)
[2020-08-14] MEDS ORDERED: CALCIUM CARBONATE 500 MG CHEWABLE TAB PO PRN (06:24)
[2020-08-14] MEDS ORDERED: ONDANSETRON 4 MG OD TAB PO PRN (06:26)
[2020-08-14] MEDS: PANTOprazole 40 MG TAB PO SCH ×2 (06:38→08:26)
--- NOTE | 2020-08-14 07:59 | XRay Report ---
XR chest 1V portable HISTORY: 60 years-old Female Chest pain . Acute atypical chest pain COMPARISON: Chest radiograph 07/27/2020 TECHNIQUE: Portable AP view of the chest FINDINGS: Cardiac mediastinal and hilar silhouettes are within normal limits. No pneumothorax, pleural effusion , airspace consolidation or overt pulmonary edema. Hiatal hernia. Degenerative changes of the shoulde rs and spine. IMPRESSION: No acute process. ACT 112: Negative or not required by law. The above report was generated using voice recognition software. It may contain grammatical, syntax o r spelling errors. Electronically signed by: Naresh Wilkinson M.D. 08/14/2020 7:58 AM
[2020-08-14] MEDS: ACETAMINOPHEN 325 MG TAB PO PRN ×4 (08:23→23:25)
[2020-08-14] MEDS: LIDOCAINE 5% 1 PATCH TD SCH (08:24)
[2020-08-14] MEDS: BACLOFEN 10 MG TAB PO SCH ×3 (08:24→20:10)
[2020-08-14] MEDS: DABIGATRAN ETEXILATE 75 MG CAP PO SCH ×2 (08:25→19:50)
[2020-08-14] MEDS: CHOLECALCIFEROL 1,000 UNITS 25 MCG TAB PO SCH (08:25)
[2020-08-14] MEDS: ASCORBIC ACID 500 MG TAB PO SCH ×2 (08:26→19:49)
[2020-08-14] MEDS: levETIRAcetam 500 MG TAB PO SCH ×2 (08:26→19:49)
[2020-08-14] MEDS: DULoxetine HCL 30 MG CAP PO SCH ×2 (08:26→19:50)
[2020-08-14] MEDS: DOCUSATE SODIUM 100 MG CAP PO SCH ×2 (08:27→20:10)
[2020-08-14] MEDS: MESALAMINE 400 MG CAPDR PO SCH ×4 (08:27→19:50)
[2020-08-14] MEDS: ZINC SULFATE 220 MG CAPSULE PO SCH (08:27)
[2020-08-14] MEDS: FAMOTIDINE 20 MG TAB PO SCH (08:28)
[2020-08-14] MEDS ORDERED: PNEUMOCOCCAL POLYSACCHARIDES 25 MCG/0.5 ML VIAL/SYR IM ONE (08:28)
[2020-08-14] MEDS ORDERED: PNEUMOCOCCAL ADMINISTRATION CHARGE ONE (08:28)
--- NOTE | 2020-08-14 09:35 | Cardiology Consultation ---
Date of Consultation August 14, 2020 Assessment & Plan (1) Paroxysmal atrial fibrillation with RVR: Mrs. Campos is a 60-year-old female with a history of Type 2 Diabetes Mellitus, Ulcerative Colitis, Chronic Diarrhea, Obesity, GERD, Eczema, Migraine Headaches, Sigmoid Diverticulosis, Depression, and a recent CVA/Dural Venous Thrombosis 07/27/2020 -- who was transferred to [facility] early this morning from [facility] secondary to newly diagnosed, rapid, and symptomatic Paroxysmal Atrial Fibrillation in the presence of marked Hypokalemia. Patient has not had any symptoms with rapid A-Fib, has not experienced any angina pectoris or anginal equivalent symptoms, nor has she had any symptoms suggestive congestive heart failure. It is possible that atrial fibrillation was the cause of her recent CVA. Patient received IV Diltiazem bolus followed by an IV drip, and spontaneously converted back to a NSR. -- Serum potassium of 3.0 mmol/l -- which is being replaced. -- Her initial Troponin I is 0.021 ng/ml and she has not had any symptoms suggestive of myocardial ischemia. -- EKG this morning at 0226 showed A-Fib with a ventricular response rate of 143 bpm. -- rebar fabricator confirms that she converted back to a normal sinus rhythm with occasional PVC's. We had a discussion regarding what A-Fib is, the natural history of atrial dysrhythmias, and various management strategies. Patient verbalized understanding of this discussion. All of her questions were answered to her satisfaction. Recommend the followin. Replace Potassium which is likely secondary to her chronic diarrhea. 2. Begin Metoprolol Succinate ER 50 mg daily. 3. Begin Potassium Chloride 20 mEq daily at the time of discharge. 4. Increase Pradaxa to 150 mg b.i.d. - which is the standard dose for non- valvular A-Fib. Patient is stable from a cardiac standpoint to [facility] after her potassium is replaced. (2) Hypokalemia: -- Likely secondary to chronic diarrhea. -- Currently receiving Potassium Chloride. -- Begin Potassium Chloride 20 mEq daily at the time of discharge. (3) History of recent stroke: -- Increase Pradaxa to 150 mg b.i.d.. History of Present Illness Reason for Consultation: -- Paroxysmal Atrial Fibrillation with RVR, newly diagnosed. Requesting Physician: Anna Van DO Attending Physician: Papa Mg MD History of Present Illness Mrs. Campos is a 60-year-old female with a history of Type 2 Diabetes Mellitus, Ulcerative Colitis, Chronic Diarrhea, Obesity, GERD, Eczema, Migraine Headaches, Sigmoid Diverticulosis, Depression, and a recent CVA/Dural Venous Thrombosis 07/27/2020 -- who was transferred here from [facility] (where she was getting therapy related to her recent CVA) after she was noted to be in Asymptomatic and Rapid A-Fib. Patient did not have any symptoms with her A-Fib whatsoever. She denies any sensation of palpitations, tachy-palpitations, or any shortness of breath. She denies any chest heaviness, tightness, pressure, or discomfort. She has not had any neck, jaw, back, or arm discomfort. She has not had any nausea, vomiting, or diaphoresis. Patient further denies any orthopnea or PND. Patient denies any history of atrial fibrillation, although following her recent stroke for which she was transferred to [facility] and she was started on Pradaxa there. She was noted to be hypokalemic on admission with a serum potassium of 3.0 mmol/l. Her initial Troponin I was 0.021 ng/ml. EKG this morning at 0226 showed A-Fib with a ventricular response rate of 143 bpm. Patient was given IV Diltiazem bolus followed by an IV drip. rebar fabricator confirms that she converted back to a normal sinus rhythm with occasional PVC's. Patient being seen in [facility] (ED Inpatient) currently and she offers no complaints. She states that she feels well and is anxious to return to [facility] so she can do her therapy. Allergies Allergy/AdvReac Type Severity Reaction Status Date / Time montelukast [From Singulair] Allergy Mild "pains in Verified 07/27/20 08:38 stomach" Home Medications Medication Instructions Recorded Confirmed Type hydrocortisone 2.5 % topical cream 1 appln OR BID PRN #30 gm 01/06/20 08/14/20 Rx with perineal applicator pantoprazole 40 mg PO DAILYBB 07/09/20 08/14/20 History prednisone 10 mg tablet 10 mg PO DAILY #124 tab 07/19/20 08/14/20 Rx acetaminophen 650 mg PO Q4 PRN 08/14/20 08/14/20 History ascorbic acid (vitamin C) [Vitamin 500 mg PO BID 08/14/20 08/14/20 History C] baclofen 5 mg PO TID 08/14/20 08/14/20 History calcium carbonate [Tums 500] 500 mg PO TID PRN 08/14/20 08/14/20 History cholecalciferol (vitamin D3) 50 mcg PO DAILY 08/14/20 08/14/20 History [Vitamin D3] dabigatran etexilate [Pradaxa] 150 mg PO BID 08/14/20 08/14/20 History docusate sodium 100 mg PO BID 08/14/20 08/14/20 History duloxetine 30 mg PO BID 08/14/20 08/14/20 History famotidine 20 mg PO DAILY 08/14/20 08/14/20 History gabapentin 300 mg PO HS 08/14/20 08/14/20 History hydrocortisone acetate [Anusol-HC] 25 mg OR HS 08/14/20 08/14/20 History insulin regular human [Humulin R 1 sliding scale dose SUBCUT ACHS 08/14/20 08/14/20 History Regular U-100 Insuln] levetiracetam 1,000 mg PO BID 08/14/20 08/14/20 History lidocaine [Lidoderm] 1 patch TOPICAL DAILY 08/14/20 08/14/20 History melatonin 3 mg PO HS 08/14/20 08/14/20 History mesalamine 400 mg PO QID 08/14/20 08/14/20 History ondansetron 4 mg PO Q4 PRN 08/14/20 08/14/20 History sulfamethoxazole-trimethoprim 1 tab PO BID 08/14/20 08/14/20 History [Bactrim DS] zinc sulfate 220 mg PO DAILY 08/14/20 08/14/20 History Patient History Medical History (Updated 08/14/20 @ 10:17 by Moreno Harvey PA-C) Abdominal pain, vomiting, and diarrhea reason for scheduled colonoscopy Chronic migraine with aura Degenerative disc disease Depression Diabetes mellitus Hypoalbuminemia Menopause Obesity Recent urinary tract infection reason for macrobid bid Sleep apnea not using cpap as ordered Tinea corporis Surgical History History of colonoscopy with polypectomy last 03/2019 History of cone biopsy of cervix benign History of endometrial ablation History of esophagogastroduodenoscopy (EGD) History of tonsillectomy Family History Mother Family history of diabetes mellitus Other No family history of adverse response to anesthesia Social History Smoking Status: Former smoker Tobacco Type: Cigarettes Cigarettes Per Day: 10 a day; Second Hand Exposure: Yes (father smoked/ smokes); Hx Alcohol Use: No Hx Substance Use: No Preferred Language: Malagasy Communication Ability: Effective Border Measurer Required: No Beliefs That Will Affect Care: None Current Living Situation: Rehab Other Information That Helps Us Care for You: No Feels Safe at Home: Yes Safety Concerns: Feels Safe At This Time Assistive Devices: None Assistive Devices Comment: sliding board Physical Exam Physical Exam: GENERAL: Patient in no acute distress. HEENT: Head is atraumatic, normocephalic. EOM's intact. Facies symmetric. No perioral cyanosis. NECK: No JVD. JVP is at the level of the clavicle sitting upright. Carotid upstrokes are + 2 bilaterally. No bruits are noted. CHEST/LUNGS: Clear to auscultation throughout all lung tineo. No wheezes, rales, or crackles. CVS: S1 and S2 are regular with occasional ectopy. No obvious murmurs, gall ops, or rubs. PMI is nonpalpable. No lifts, heaves, or thrills. No abdominal aortic or renal bruits. ABDOMINAL EXAM: Bowel sounds are present. No masses, organomegaly, or tenderness. EXTREMITIES: No clubbing or cyanosis. No edema. Intact posterior tibial and radial pulses bilaterally. NEUROLOGIC EXAM: Patient is awake, alert, and oriented. Pleasant and cooperative. Answers questions appropriately. Speech is clear. EKG 08/14/2020 at 0226: -- A-Fib with a ventricular response rate of 143 bpm. RECEPTIONIST NURSE: -- Currently shows NSR with PVC's. -- Converted from rapid A-Fib earlier this morning. Results & Data ([facility]) Vital Signs (Past 12 Hours) Vital Signs Temp Pulse Pulse Resp BP BP Pulse Ox 08/14/20 08:00 37 C 83 19 114/68 96 08/14/20 06:16 97 H 20 108/61 96 08/14/20 05:23 114 H 20 101/75 99 08/14/20 04:41 108 H 20 117/78 98 08/14/20 04:03 122 H 20 118/73 99 08/14/20 03:35 108 H 20 107/73 92 08/14/20 03:07 116 H 2 L 96/82 L 98 08/14/20 02:52 151 H 17 120/71 95 08/14/20 02:51 136 H 16 82/64 L 94 08/14/20 02:45 163 H 21 90/66 L 96 08/14/20 02:44 141 H 18 95/71 L 95 08/14/20 02:23 36.6 C 120 H 16 95/74 L 96 Laboratory Results Laboratory Results - last 24 hr 08/14/20 08/14/20 08/14/20 02:37 02:37 02:37 WBC 11.10 H RBC 3.48 L Hgb 10.2 L Hct 31.2 L MCV 89.7 MCH 29.3 MCHC 32.7 RDW Std Deviation 52.3 H RDW Coeff of Russ 16.0 H Plt Count 495 H MPV 8.1 Immature Gran % (Auto) 6.8 Neut % (Auto) 66.2 Lymph % (Auto) 15.9 Hall % (Auto) 8.6 Eos % (Auto) 2.4 Baso % (Auto) 0.1 Neut # (Auto) 7.34 H Lymph # (Auto) 1.77 Hall # (Auto) 0.96 H Eos # (Auto) 0.27 Baso # (Auto) 0.01 Immature Gran # (Auto) 0.75 H PT 12.6 H INR 1.2 H APTT 46.6 H* PTT Ratio 1.7 Sodium 134 L Potassium 3.0 L Chloride 101 Carbon Dioxide 24 Anion Gap 9.0 BUN 14 Creatinine 0.75 Est Cr Clr Drug Dosing 90.5 Est GFR ( Amer) 99.7 Est GFR (Non-Af Amer) 86.0 BUN/Creatinine Ratio 18.5 Glucose 93 Calcium 8.8 Magnesium 2.4 Total Bilirubin 0.3 AST 12 L ALT 18 Alkaline Phosphatase 71 Troponin I 0.021 Total Protein 7.5 Albumin 2.2 L Globulin 5.3 H Albumin/Globulin Ratio 0.4 L Lipase 124 TSH 1.110 Urine Color Urine Appearance Urine pH Ur Specific [place] Urine Protein Urine Glucose (UA) Urine Ketones Urine Blood Urine Nitrite Urine Bilirubin Urine Urobilinogen Ur Leukocyte Esterase Urine WBC (Auto) Urine RBC (Auto) U Hyaline Cast (Auto) U Epithel Cells (Auto) Urine Bacteria (Auto) Hepatitis C Ab Screen SARS-CoV-2 Ag (Rapid) 08/14/20 08/14/20 08/14/20 04:00 04:20 09:12 WBC RBC Hgb Hct MCV MCH MCHC RDW Std Deviation RDW Coeff of Russ Plt Count MPV Immature Gran % (Auto) Neut % (Auto) Lymph % (Auto) Hall % (Auto) Eos % (Auto) Baso % (Auto) Neut # (Auto) Lymph # (Auto) Hall # (Auto) Eos # (Auto) Baso # (Auto) Immature Gran # (Auto) PT INR APTT PTT Ratio Sodium Potassium Chloride Carbon Dioxide Anion Gap BUN Creatinine Est Cr Clr Drug Dosing Est GFR ( Amer) Est GFR (Non-Af Amer) BUN/Creatinine Ratio Glucose Calcium Magnesium Total Bilirubin AST ALT Alkaline Phosphatase Troponin I 0.038 Total Protein Albumin Globulin Albumin/Globulin Ratio Lipase TSH Urine Color Yellow Urine Appearance Clear Urine pH 6.0 Ur Specific [place] 1.013 Urine Protein Negative Urine Glucose (UA) Negative Urine Ketones Trace H Urine Blood Negative Urine Nitrite Negative Urine Bilirubin Negative Urine Urobilinogen Negative Ur Leukocyte Esterase Trace H Urine WBC (Auto) 1-5 Urine RBC (Auto) 0-4 U Hyaline Cast (Auto) 1-5 U Epithel Cells (Auto) >30 H Urine Bacteria (Auto) Negative Hepatitis C Ab Screen SARS-CoV-2 Ag (Rapid) Negative 08/14/20 09:12 WBC RBC Hgb Hct MCV MCH MCHC RDW Std Deviation RDW Coeff of Russ Plt Count MPV Immature Gran % (Auto) Neut % (Auto) Lymph % (Auto) Hall % (Auto) Eos % (Auto) Baso % (Auto) Neut # (Auto) Lymph # (Auto) Hall # (Auto) Eos # (Auto) Baso # (Auto) Immature Gran # (Auto) PT INR APTT PTT Ratio Sodium Potassium Chloride Carbon Dioxide Anion Gap BUN Creatinine Est Cr Clr Drug Dosing Est GFR ( Amer) Est GFR (Non-Af Amer) BUN/Creatinine Ratio Glucose Calcium Magnesium Total Bilirubin AST ALT Alkaline Phosphatase Troponin I Total Protein Albumin Globulin Albumin/Globulin Ratio Lipase TSH Urine Color Urine Appearance Urine pH Ur Specific [place] Urine Protein Urine Glucose (UA) Urine Ketones Urine Blood Urine Nitrite Urine Bilirubin Urine Urobilinogen Ur Leukocyte Esterase Urine WBC (Auto) Urine RBC (Auto) U Hyaline Cast (Auto) U Epithel Cells (Auto) Urine Bacteria (Auto) Hepatitis C Ab Screen Pending SARS-CoV-2 Ag (Rapid) Medications Administered Active Medications Generic Name Dose Route Start Last Admin Trade Name Freq PRN Reason Stop Dose Admin Acetaminophen 650 mg 08/14/20 06:01 08/14/20 08:23 Acetaminophen 325 Mg Tab PO 09/13/20 06:00 650 mg Q4H PRN Administration Pain or Fever Ascorbic Acid 500 mg 08/14/20 09:00 08/14/20 08:26 Ascorbic Acid 500 Mg Tab PO 09/13/20 08:59 500 mg BID KATHLEEN Administration Baclofen 5 mg 08/14/20 09:00 08/14/20 08:24 Baclofen 10 Mg Tab PO 09/13/20 08:59 5 mg TID KATHLEEN Administration Calcium Carbonate 500 mg 08/14/20 06:24 Calcium Carbonate 500 Mg Chewable Tab PO 09/13/20 06:23 TID PRN Indigestion Dabigatran 150 mg 08/14/20 09:00 08/14/20 08:25 Dabigatran Etexilate 75 Mg Cap PO 09/13/20 08:59 150 mg BID KATHLEEN Administration Docusate Sodium 100 mg 08/14/20 09:00 08/14/20 08:27 Docusate Sodium 100 Mg Cap PO 09/13/20 08:59 100 mg BID KATHLEEN Administration Duloxetine HCl 30 mg 08/14/20 09:00 08/14/20 08:26 Duloxetine Hcl 30 Mg Cap PO 09/13/20 08:59 30 mg BID KATHLEEN Administration Famotidine 20 mg 08/14/20 09:00 08/14/20 08:28 Famotidine 20 Mg Tab PO 09/13/20 08:59 20 mg DAILY KATHLEEN Administration Gabapentin 300 mg 08/14/20 21:00 Gabapentin 300 Mg Cap PO 09/13/20 20:59 HS KATHLEEN Hydrocortisone 1 appln 08/14/20 06:01 Hydrocortisone Hc 2.5% Crm 30gm Tube EXT 09/13/20 06:00 BID PRN hemorrhoids Diltiazem HCl 125 mg/ Dextrose 125 mls @ 5 mls/hr 08/14/20 02:30 08/14/20 02:43 IV 09/13/20 02:29 5 mg/hr .Q24H KATHLEEN 5 mls/hr Administration Protocol 5 MG/HR Potassium Chloride/Sodium Chloride 20 meq in 1,000 mls @ 100 mls/hr 08/14/20 06:01 08/14/20 06:39 Normal Saline W/20 Meq Kcl IV 09/13/20 06:00 Not Given .Q10H KATHLEEN Levetiracetam 1,000 mg 08/14/20 09:00 08/14/20 08:26 Levetiracetam 500 Mg Tab PO 09/13/20 08:59 1,000 mg BID KATHLEEN Administration Lidocaine 1 patch 08/14/20 09:00 08/14/20 08:24 Lidocaine 5% 1 Patch TD 09/13/20 08:59 1 patch DAILY KATHLEEN Administration Melatonin 3 mg 08/14/20 21:00 Melatonin 3 Mg Tab PO 09/13/20 20:59 HS [facility] Mesalamine 400 mg 08/14/20 09:00 08/14/20 08:27 Mesalamine 400 Mg Capdr PO 09/13/20 08:59 400 mg QID KATHLEEN Administration Miscellaneous 1 ea 08/14/20 21:00 Remove Lidoderm Patch N/A 09/13/20 20:59 DAILY@2100 [facility] Miscellaneous Information 1 ea 08/14/20 10:00 Nursing To Pharmacy Communication N/A 09/13/20 09:59 TODAY [facility] Ondansetron HCl 4 mg 08/14/20 06:26 08/14/20 08:23 Ondansetron 4 Mg Od Tab PO 09/13/20 06:25 4 mg Q4 PRN Administration Nausea And Vomiting Ondansetron HCl 4 mg 08/14/20 06:01 Ondansetron Inj 2 Mg/Ml 2 Ml Vial IV 09/13/20 06:00 Q6H PRN Nausea Pantoprazole Sodium 40 mg 08/14/20 06:30 08/14/20 08:26 Pantoprazole 40 Mg Tab PO 09/13/20 06:29 40 mg DAILYBB KATHLEEN Administration Pneumococcal Polyvalent Vaccine 25 mcg 08/14/20 08:28 Pneumococcal Polysaccharides 25 Mcg/0.5 Ml Vial/Syr IM 08/14/20 08:29 .ONCE ONE Vitamin D 2,000 units 08/14/20 09:00 08/14/20 08:25 Cholecalciferol 1,000 Units 25 Mcg Tab PO 09/13/20 08:59 2,000 units DAILY KATHLEEN Administration Zinc Sulfate 220 mg 08/14/20 09:00 08/14/20 08:27 Zinc Sulfate 220 Mg Capsule PO 09/13/20 08:59 220 mg DAILY KATHLEEN Administration PG Care Time/CCT Total # of Minutes Spent Total Time Spent with Patient: Total time spent is greater than 50% in coordination of care (as documented) at patient's floor/unit and/or counseling patient:35 Coding Level of Care Code 96359 Office/OBS Consult Lvl 4 Diagnoses Paroxysmal atrial fibrillation with RVR I48.0 Hypokalemia E87.6 History of recent stroke Z86.73
[2020-08-14] MEDS ORDERED: Nursing to Pharmacy Communication SCH (10:00)
--- NOTE | 2020-08-14 12:22 | XCELERA ---
[id number]
--- NOTE | 2020-08-14 14:55 | Electrocardiogram Report ---
Test Reason : Blood Pressure : / mmHG Vent. Rate : 143 BPM Atrial Rate : 133 BPM P-R Int : 000 ms QRS Dur : 082 ms QT Int : 316 ms P-R-T Axes : 000 038 027 degrees QTc Int : 487 ms Atrial fibrillation with rapid ventricular response Abnormal ECG When compared with ECG of 27-JUL-2020 08:20, Atrial fibrillation has replaced Sinus rhythm Vent. rate has increased BY 56 BPM Confirmed by Papa Mg ([id number]) on 08/14/2020 2:55:35 PM Referred By: [facility] Confirmed By:Papa Mg
[2020-08-14 15:00] LABS: BUN Creatinine Ratio 16.5 (10-20); Calcium 8.4 mg/dl (8.5-10.1); Creatinine Clr Calc Pharmacy 77.5 ml/min; Est GFR (African American) 84.5; Est GFR (Non-African American) 72.9; Potassium 4.2 mmol/L (3.5-5.1)
--- NOTE | 2020-08-14 19:03 | Hospitalist Progress Note ---
Date of Service August 14, 2020 Assessment & Plan (1) Atrial fibrillation with rapid ventricular response: Atrial fibrillation with RVR- The patient will be admitted to telemetry for serial cardiac enzymes, serial EKG's, cardiac rhythm monitoring and a 2-D Optimize potassium with oral and IV supplementation. Given Cardizem 25 mg IV bolus and presently on Cardizem drip at 5 mg/h, pt converted Cards recs for metoprolol ER 50mg QD and ongoing K replacement Increase pradaxa to 150mg BID for afib dosing ECHO with EF 60-65% (2) Hypokalemia: As above (3) History of recent stroke: History of recent hemorrhagic stroke/on dabigatran therapy- [facility] Continue baclofen, duloxetine, gabapentin and Keppra. (4) On dabigatran therapy: See above (5) Diabetes mellitus: Placed on Accu-Cheks before meals and at bedtime with NovoLog coverage per scale (6) Depression: Continue duloxetine and gabapentin (7) Non-specific colitis: Continue mesalamine and prednisone. Hold on stress dose steroids for now Unfortunately, pt may need repeat PT/OT evals and repeat auth to return to [facility] despite being out of their facility for less than 12 hours. Awaiting determination from insurance on this, which will not be until tomorrow. Admission and Anticipated Discharge Date Admission Date: August 14, 2020 Subjective Pt feels at her usual, with ongoing L sided UE/LE weakness. She had no sx of afib. This was noted purely on routine VS. Pt denies fever, SOB, chest pain, abd pain, n/v/c/d, LE pain or swelling. No palpitations. Review of Systems Review of Systems: Pertinent positives and negatives reviewed in HPI--all others negative Physical Exam Constitutional: WD/WN, vitals as above Eyes: normal visual tineo by confrontation and + anicteric sclerae Neck: normal visual inspection and trachea midline Respiratory: normal respiratory effort, lungs clear to auscultation Cardiovascular: Rate/Rhythm: regular rate and regular rhythm Gastrointestinal (Abdomen): Inspection/Auscultation: abdomen not distended Percussion/Palpation: abdomen soft; abdomen nontender Musculoskeletal: Head/Neck/Chest: normocephalic and head atraumatic negative for edema, peripheral pulses intact Skin: no rashes, warm and dry Neurologic: awake; not confused Speech / Cognition: normal speech Psychiatric: A+Ox3, euthymic affect Results & Data Results & Data ([facility]) Vital Signs (Past 12 Hours) Vital Signs Temp Pulse Pulse Pulse Resp BP BP 08/14/20 15:54 92 H 08/14/20 12:55 36.8 C 94 H 18 109/74 08/14/20 12:00 36.8 C 104 H 20 115/69 08/14/20 09:00 98 H 08/14/20 08:00 37 C 83 19 114/68 Pulse Ox Pulse Ox 08/14/20 15:54 08/14/20 12:55 96 08/14/20 12:00 96 96 08/14/20 09:00 94 08/14/20 08:00 96 PG Care Time/CCT Total # of Minutes Spent Total Time Spent with Patient: Total time spent is greater than 50% in coordination of care (as documented) at patient's floor/unit and/or counseling patient: Coding Level of Care Code 30718 Subseq Hosp Care Lvl 3 Diagnoses Atrial fibrillation with rapid ventricular response I48.91 Hypokalemia E87.6 History of recent stroke Z86.73 On dabigatran therapy Z79.01 Diabetes mellitus E11.9 Depression F32.9 Non-specific colitis K52.9
[2020-08-14] MEDS: GABAPENTIN 300 MG CAP PO SCH (19:50)
[2020-08-14] MEDS: MELATONIN 3 MG TAB PO SCH (20:10)
[2020-08-14] MEDS ORDERED: HYDROCORTISONE ACETATE 25 MG SUPP PR SCH (21:00)
[2020-08-15] MEDS: ACETAMINOPHEN 325 MG TAB PO PRN ×4 (07:32→20:40)
[2020-08-15 07:47] LABS: Hemoglobin 8.9 g/dL (12.0-16.0); Mean Corpuscular Hemoglobin 29.2 pg (25-34); Mean Corpuscular Hgb Conc 31.8 g/dL (32-36); Mean Corpuscular Volume 91.8 fL (80-100); Mean Platelet Volume 8.2 fL (7.4-10.4); Platelet Count 446 K/uL (130-400); RDW Coefficient of Variation 16.6 % (11.5-14.5); RDW Standard Deviation 54.9 fL (36.4-46.3); Red Blood Count 3.05 M/uL (4.2-5.4); White Blood Count 8.83 K/uL (4.8-10.8)
[2020-08-15 07:58] LABS: INR 1.1 (0.9-1.1); Partial Thromboplastin Ratio 1.5; Prothrombin Time 11.9 Seconds (9.0-12.0)
[2020-08-15 08:11] LABS: Basophils # (auto) 0.03 K/uL (0-0.2); Basophils % (auto) 0.3 %; Eosinophils # (auto) 0.39 K/uL (0-0.5); Eosinophils % (auto) 4.4 %; Immature Granulocytes # (auto) 0.53 K/uL (0.00-0.02); Lymphocytes # (auto) 1.11 K/uL (1.2-3.4); Lymphocytes % (auto) 12.6 %; Monocytes # (auto) 0.65 K/uL (0.11-0.59); Monocytes % (auto) 7.4 %; Neutrophils # (auto) 6.12 K/uL (1.4-6.5); Neutrophils % (auto) 69.3 %
[2020-08-15] MEDS: LIDOCAINE 5% 1 PATCH TD SCH (08:22)
[2020-08-15] MEDS: levETIRAcetam 500 MG TAB PO SCH ×2 (08:24→20:33)
[2020-08-15] MEDS: DABIGATRAN ETEXILATE 75 MG CAP PO SCH ×2 (08:25→20:32)
[2020-08-15] MEDS: ASCORBIC ACID 500 MG TAB PO SCH ×2 (08:27→20:33)
[2020-08-15] MEDS: CHOLECALCIFEROL 1,000 UNITS 25 MCG TAB PO SCH (08:27)
[2020-08-15] MEDS: FAMOTIDINE 20 MG TAB PO SCH (08:28)
[2020-08-15] MEDS: ZINC SULFATE 220 MG CAPSULE PO SCH (08:28)
[2020-08-15] MEDS: DULoxetine HCL 30 MG CAP PO SCH ×2 (08:29→20:32)
[2020-08-15] MEDS: MESALAMINE 400 MG CAPDR PO SCH ×4 (08:29→20:32)
[2020-08-15] MEDS: DOCUSATE SODIUM 100 MG CAP PO SCH ×2 (08:34→20:31)
[2020-08-15] MEDS: BACLOFEN 10 MG TAB PO SCH ×3 (08:35→20:31)
[2020-08-15 08:36] LABS: Albumin Globulin Ratio 0.4 (0.9-2); Albumin Level 1.9 gm/dl (3.4-5.0); BUN Creatinine Ratio 22.7 (10-20); Bilirubin,Total 0.3 mg/dl (0.2-1); Calcium 8.6 mg/dl (8.5-10.1); Creatinine Clr Calc Pharmacy 127.5 ml/min; Est GFR (African American) 119.5; Est GFR (Non-African American) 103.1; Globulin 4.3 gm/dl (2.5-4.0); Potassium 3.7 mmol/L (3.5-5.1); Total Protein 6.2 gm/dl (6.4-8.2)
[2020-08-15] MEDS ORDERED: METOPROLOL SUCC 50MG EXT REL TAB PO STA (09:22)
[2020-08-15] MEDS: POTASSIUM CHLORIDE CRTAB 20 MEQ TABCR PO SCH (10:07)
--- NOTE | 2020-08-15 14:02 | Electrocardiogram Report ---
Test Reason : Blood Pressure : / mmHG Vent. Rate : 097 BPM Atrial Rate : 097 BPM P-R Int : 128 ms QRS Dur : 064 ms QT Int : 348 ms P-R-T Axes : 061 061 058 degrees QTc Int : 441 ms Sinus rhythm with occasional Premature ventricular complexes Low voltage QRS Borderline ECG When compared with ECG of 14-AUG-2020 02:23, Sinus rhythm has replaced Atrial fibrillation Confirmed by Papa Mg ([id number]) on 08/15/2020 2:02:40 PM Referred By: [facility] Confirmed By:Papa Mg
--- NOTE | 2020-08-15 17:38 | Hospitalist Progress Note ---
Date of Service August 15, 2020 Assessment & Plan (1) Atrial fibrillation with rapid ventricular response: Atrial fibrillation with RVR- The patient will be admitted to telemetry for serial cardiac enzymes, serial EKG's, cardiac rhythm monitoring and a 2-D Optimize potassium with oral and IV supplementation. Given Cardizem 25 mg IV bolus and presently on Cardizem drip at 5 mg/h, pt converted Cards recs for metoprolol ER 50mg QD and ongoing K replacement Increase pradaxa to 150mg BID for afib dosing ECHO with EF 60-65% Trop neg x4 (2) Hypokalemia: As above (3) History of recent stroke: History of recent hemorrhagic stroke/on dabigatran therapy- Plan would be for return to [facility] rehab after hospitalization Continue baclofen, duloxetine, gabapentin and Keppra. (4) On dabigatran therapy: See above (5) Diabetes mellitus: Placed on Accu-Cheks before meals and at bedtime with NovoLog coverage per scale (6) Depression: Continue duloxetine and gabapentin (7) Non-specific colitis: Continue mesalamine and prednisone. Hold on stress dose steroids for now Unfortunately, pt may need repeat PT/OT evals and repeat auth to return to [facility] despite being out of their facility for less than 12 hours. Awaiting determination from insurance on this, which will not be until tomorrow. (8) Anemia: Drop in Hb overnight to 8.9 (10.2 on admission) Possibly dilutional given tx the last few days, however pt was newly started on Pradaxa for her recent CVA and this dose was increased to cover her for future stroke proph related to her afib. Denies barbie bleeding/bruising Hemoccult pending Admission and Anticipated Discharge Date Admission Date: August 14, 2020 Subjective Pt has no SOB, chest pain. Tolerating PO without issue. Her main concern is that she is missing her therapy at [facility] and is worried that this is going to slow her recovery. Pt denies fever, SOB, chest pain, abd pain, n/v/c/d, LE pain or swelling. Review of Systems Review of Systems: Pertinent positives and negatives reviewed in HPI--all others negative Physical Exam Constitutional: WD/WN, vitals as above Eyes: normal visual tineo by confrontation and + anicteric sclerae Neck: normal visual inspection and trachea midline Respiratory: normal respiratory effort, lungs clear to auscultation Cardiovascular: Rate/Rhythm: regular rate and regular rhythm Gastrointestinal (Abdomen): Inspection/Auscultation: abdomen not distended Percussion/Palpation: abdomen soft; abdomen nontender Musculoskeletal: Head/Neck/Chest: normocephalic and head atraumatic Skin: no rashes, warm and dry Neurologic: awake; not confused Speech / Cognition: normal speech Psychiatric: A+Ox3, euthymic affect Results & Data Results & Data ([facility]) Vital Signs (Past 12 Hours) Vital Signs Temp Pulse Pulse Resp BP BP Pulse Ox 08/15/20 14:54 90 08/15/20 14:37 37 C 89 18 111/75 97 08/15/20 11:41 36.7 C 92 H 20 122/81 93 08/15/20 07:23 92 H 08/15/20 07:18 36.7 C 96 H 18 124/81 97 PG Care Time/CCT Total # of Minutes Spent Total Time Spent with Patient: Total time spent is greater than 50% in coordination of care (as documented) at patient's floor/unit and/or counseling patient: Coding Level of Care Code 14351 Subseq Hosp Care Lvl 3 Diagnoses Atrial fibrillation with rapid ventricular response I48.91 Hypokalemia E87.6 History of recent stroke Z86.73 On dabigatran therapy Z79.01 Diabetes mellitus E11.9 Depression F32.9 Non-specific colitis K52.9 Anemia D64.9
[2020-08-15] MEDS: MELATONIN 3 MG TAB PO SCH (20:32)
[2020-08-15] MEDS: GABAPENTIN 300 MG CAP PO SCH (20:32)
[2020-08-16] MEDS: ACETAMINOPHEN 325 MG TAB PO PRN ×3 (01:12→20:09)
[2020-08-16] MEDS: PANTOprazole 40 MG TAB PO SCH (05:50)
[2020-08-16 07:17] LABS: Hematocrit (blood only) 26.4 % (37-47); Hemoglobin 8.5 g/dL (12.0-16.0); Mean Corpuscular Hemoglobin 29.4 pg (25-34); Mean Corpuscular Hgb Conc 32.2 g/dL (32-36); Mean Corpuscular Volume 91.3 fL (80-100); Mean Platelet Volume 7.8 fL (7.4-10.4); Platelet Count 434 K/uL (130-400); RDW Coefficient of Variation 16.5 % (11.5-14.5); RDW Standard Deviation 55.1 fL (36.4-46.3); Red Blood Count 2.89 M/uL (4.2-5.4); White Blood Count 8.22 K/uL (4.8-10.8)
[2020-08-16 07:38] LABS: Basophils # (auto) 0.01 K/uL (0-0.2); Basophils % (auto) 0.1 %; Eosinophils % (auto) 3.6 %; Immature Granulocytes # (auto) 0.43 K/uL (0.00-0.02); Immature Granulocytes % (auto) 5.2 %; Lymphocytes # (auto) 0.81 K/uL (1.2-3.4); Lymphocytes % (auto) 9.9 %; Monocytes # (auto) 0.54 K/uL (0.11-0.59); Monocytes % (auto) 6.6 %; Neutrophils # (auto) 6.13 K/uL (1.4-6.5); Neutrophils % (auto) 74.6 %
[2020-08-16 07:53] LABS: Albumin Level 1.8 gm/dl (3.4-5.0); BUN Creatinine Ratio 25.6 (10-20); Calcium 8.8 mg/dl (8.5-10.1); Creatinine Clr Calc Pharmacy 178.4 ml/min; Est GFR (African American) 133.7; Est GFR (Non-African American) 115.3; Potassium 3.8 mmol/L (3.5-5.1)
[2020-08-16 07:59] LABS: Albumin Globulin Ratio 0.4 (0.9-2); Bilirubin,Total 0.3 mg/dl (0.2-1); Globulin 4.1 gm/dl (2.5-4.0); Total Protein 5.9 gm/dl (6.4-8.2)
[2020-08-16] MEDS: DULoxetine HCL 30 MG CAP PO SCH ×2 (08:16→20:06)
[2020-08-16] MEDS: LIDOCAINE 5% 1 PATCH TD SCH (08:16)
[2020-08-16] MEDS: MESALAMINE 400 MG CAPDR PO SCH ×4 (08:17→20:05)
[2020-08-16] MEDS: levETIRAcetam 500 MG TAB PO SCH ×2 (08:17→20:06)
[2020-08-16] MEDS: ZINC SULFATE 220 MG CAPSULE PO SCH (08:17)
[2020-08-16] MEDS: POTASSIUM CHLORIDE CRTAB 20 MEQ TABCR PO SCH (08:17)
[2020-08-16] MEDS: FAMOTIDINE 20 MG TAB PO SCH (08:18)
[2020-08-16] MEDS: DABIGATRAN ETEXILATE 75 MG CAP PO SCH ×2 (08:18→20:07)
[2020-08-16] MEDS: ASCORBIC ACID 500 MG TAB PO SCH ×2 (08:18→20:06)
[2020-08-16] MEDS: CHOLECALCIFEROL 1,000 UNITS 25 MCG TAB PO SCH (08:18)
[2020-08-16] MEDS: DOCUSATE SODIUM 100 MG CAP PO SCH ×2 (08:23→20:09)
[2020-08-16] MEDS: BACLOFEN 10 MG TAB PO SCH ×3 (08:23→20:09)
[2020-08-16] MEDS ORDERED: METOPROLOL SUCC 50MG EXT REL TAB PO SCH (09:00)
[2020-08-16] MEDS ORDERED: METOPROLOL SUCC 50MG EXT REL TAB PO ONE (09:00)
--- NOTE | 2020-08-16 10:52 | Discharge Summary ---
Date of Service August 16, 2020 Admission HPI Per Admitting Provider The patient is a 60-year-old female with a past medical history including dural sinus thrombosis, intraparenchymal hemorrhage of brain, acute left-sided weakness, colitis, obesity, vitamin D deficiency, acid reflux, occipital neuralgia, depression and chronic migraine with aura. The patient had presented to [facility] emergency department on 07/27/2020 and was diagnosed with an acute stroke. She was referred to [facility], after treatment there was referred to [facility]. As noted above, she was found to be in atrial fibrillation with RVR during routine vitals assessment this evening and sent to the emergency department for assessment. Patient denies any recent episodes of palpitations, and denies any history of atrial fibrillation. Principal Diagnosis Parox atrial fib with RVR Discharge Exam Constitutional WD/WN, vitals as above Eyes PERRL, conjunctivae normal, anicteric sclerae ENMT external ear and nose normal, oropharynx normal Neck trachea midline, no thyromegaly Respiratory normal respiratory effort, lungs clear to auscultation Cardiovascular RRR, no murmur, no edema Gastrointestinal (Abdomen) normal bowel sounds, soft, nontender, no hepatosplenomegaly Musculoskeletal Extremities: extremities normal to inspection Skin no rashes, warm and dry Neurologic left hemiparesis from recent CVA Psychiatric A+Ox3, euthymic affect Genitourinary no vaginal lesions, no adnexal mass Discharge Data Allergies Allergy/AdvReac Type Severity Reaction Status Date / Time montelukast [From Singulair] Allergy Mild "pains in Verified 07/27/20 08:38 stomach" Consultations 08/14/20 03:40 ED Decision to Admit Stat 08/14/20 06:01 Consult Cardiology Routine Hospital Course (1) Atrial fibrillation with rapid ventricular response: Atrial fibrillation with RVR- The patient will be admitted to telemetry for serial cardiac enzymes, serial EKG's, cardiac rhythm monitoring and a 2-D Optimize potassium with oral and IV supplementation. Given Cardizem 25 mg IV bolus and presently on Cardizem drip at 5 mg/h, pt converted Cards recs for metoprolol ER daily. Dosage up-titrated today, 08/16. Increased pradaxa to 150mg BID for afib dosing ECHO with EF 60-65% Trop neg x4 (2) Hypokalemia: As above (3) History of recent stroke: History of recent hemorrhagic stroke/on dabigatran therapy- Plan would be for return to [facility] rehab after hospitalization Continue baclofen, duloxetine, gabapentin and Keppra. (4) On dabigatran therapy: See above (5) Diabetes mellitus: Placed on Accu-Cheks before meals and at bedtime with NovoLog coverage per scale (6) Depression: Continue duloxetine and gabapentin (7) Non-specific colitis: Continue mesalamine and prednisone. Hold on stress dose steroids for now Unfortunately, pt may need repeat PT/OT evals and repeat auth to return to [facility] despite being out of their facility for less than 12 hours. Awaiting determination from insurance on this, which will not be until tomorrow. (8) Anemia: Mild drop in Hb 8.9 (10.2 on admission) Possibly dilutional given tx the last few days, however pt was newly started on Pradaxa for her recent CVA and this dose was increased to cover her for future stroke proph related to her afib. Denies barbie bleeding/bruising Hemoccult pending Total Time Total Time Spent Total Time Spent (In Minutes): 35 minutes Total Time Includes: Examination of the Patient, Discharge Planning and Medication Reconciliation Discharge Plan Discharge Items Patient Disposition: Transfer Inpatient Rehab Fac Reason For Visit: ATRIAL FIB WITH RVR Discharge Diagnosis: Parox atrial fib with RVR Activity: Resume your previous activity Non-emergency contact: Primary Care Provider Call non-emergency contact if: you have any medication questions Follow-up/Referrals: Gabriela Dowling CRNP [Primary Care Provider] - Diet: Carb Consistent or DM2 Addtl Attending Provider Instructions: resume rehab at [facility] Pending Studies at Discharge: No Stand-Alone Forms: My [facility] Skilled Items Patient informed of condition?: Yes DNR: No Discharge Level of Care: Acute rehab Communicable Disease: No Discharge Prognosis: Stable Lines: None Urinary Catheter: No Medications and DC Order Prescriptions: New metoprolol succinate 50 mg Tablet Extended Release 24 Hr 100 mg PO QAM Qty: 30 RF: 0 potassium chloride [Klor-Con M20] 20 mEq Tablet,Er Particles/Crystals 20 meq PO QAM Qty: 30 RF: 0 Continued prednisone 10 mg tablet 10 mg PO DAILY Qty: 124 RF: 0 hydrocortisone [Proctosol HC] 2.5 % cream with perineal applicator 1 appln IL BID PRN (Reason: hemorrhoids) Qty: 30 RF: 1 pantoprazole 40 mg tablet,delayed release (DR/EC) 40 mg PO DAILYBB RF: 0 melatonin 3 mg Tablet 3 mg PO HS RF: 0 docusate sodium 100 mg Capsule 100 mg PO BID RF: 0 mesalamine 400 mg capsule (with del rel tablets) 400 mg PO QID RF: 0 gabapentin 300 mg Capsule 300 mg PO HS RF: 0 famotidine 20 mg Tablet 20 mg PO DAILY RF: 0 duloxetine 30 mg Capsule,Delayed Release(Dr/Ec) 30 mg PO BID RF: 0 levetiracetam 1,000 mg Tablet 1,000 mg PO BID RF: 0 zinc sulfate 220 (50) mg Capsule 220 mg PO DAILY RF: 0 sulfamethoxazole-trimethoprim [Bactrim DS] 800-160 mg Tablet 1 tab PO BID RF: 0 ascorbic acid (vitamin C) [Vitamin C] 500 mg Tablet 500 mg PO BID RF: 0 lidocaine [Lidoderm] 5 % Adhesive Patch,Medicated 1 patch TOPICAL DAILY RF: 0 ondansetron 4 mg Tablet,Disintegrating 4 mg PO Q4 PRN (Reason: Nausea And Vomiting) RF: 0 cholecalciferol (vitamin D3) [Vitamin D3] 50 mcg (2,000 unit) Capsule 50 mcg PO DAILY RF: 0 Pradaxa 150 mg Capsule 150 mg PO BID RF: 0 baclofen 5 mg Tablet 5 mg PO TID RF: 0 hydrocortisone acetate [Anusol-HC] 25 mg Suppository 25 mg IL HS RF: 0 acetaminophen 325 mg Tablet 650 mg PO Q4 PRN (Reason: Pain) RF: 0 Humulin R Regular U-100 Insuln 100 unit/mL Solution 1 sliding scale dose SUBCUT ACHS RF: 0 calcium carbonate 500 mg calcium (1,250 mg) Tablet,Chewable 500 mg PO TID PRN (Reason: Indigestion) RF: 0 Discharge Orders: Discharge Order (Routine); Ordered 08/16/20 Ordered By: Chang Lin Admission Data Admit Date/Time: 08/14/20 04:49 Attending Provider: Chang Lin Admit Provider: Bayron Brown Primary Care Provider: Gabriela Dowling Other Providers: Bayron Brown ; Delano Elliott ; [facility] Coding Level of Care Code D/C Day Management >30 mins Diagnoses Atrial fibrillation with rapid ventricular response I48.91 Hypokalemia E87.6 History of recent stroke Z86.73 On dabigatran therapy Z79.01 Diabetes mellitus E11.9 Depression F32.9 Non-specific colitis K52.9 Anemia D64.9
[2020-08-16] MEDS: GABAPENTIN 300 MG CAP PO SCH (20:05)
[2020-08-16] MEDS: MELATONIN 3 MG TAB PO SCH (20:10)
[2020-08-17] MEDS: PANTOprazole 40 MG TAB PO SCH (05:05)
[2020-08-17] MEDS: ACETAMINOPHEN 325 MG TAB PO PRN (06:03)
--- NOTE | 2020-08-17 06:45 | Electrocardiogram Report ---
Test Reason : Blood Pressure : / mmHG Vent. Rate : 098 BPM Atrial Rate : 098 BPM P-R Int : 128 ms QRS Dur : 074 ms QT Int : 348 ms P-R-T Axes : 081 061 012 degrees QTc Int : 444 ms Normal sinus rhythm Low voltage QRS Borderline ECG When compared with ECG of 15-AUG-2020 06:29, Premature ventricular complexes are no longer Present Confirmed by Nba Roberto ([id number]) on 08/17/2020 6:44:37 AM Referred By: [facility] Confirmed By:Nba Roberto
[2020-08-17 07:03] LABS: Hematocrit (blood only) 27.5 % (37-47); Hemoglobin 8.6 g/dL (12.0-16.0); Mean Corpuscular Hemoglobin 28.6 pg (25-34); Mean Corpuscular Hgb Conc 31.3 g/dL (32-36); Mean Corpuscular Volume 91.4 fL (80-100); Platelet Count 441 K/uL (130-400); RDW Coefficient of Variation 16.8 % (11.5-14.5); RDW Standard Deviation 55.5 fL (36.4-46.3); Red Blood Count 3.01 M/uL (4.2-5.4); White Blood Count 7.76 K/uL (4.8-10.8)
[2020-08-17 07:41] LABS: Albumin Globulin Ratio 0.4 (0.9-2); Albumin Level 1.8 gm/dl (3.4-5.0); BUN Creatinine Ratio 19.5 (10-20); Bilirubin,Total 0.2 mg/dl (0.2-1); Calcium 8.5 mg/dl (8.5-10.1); Creatinine Clr Calc Pharmacy 135.6 ml/min; Est GFR (African American) 121.9; Est GFR (Non-African American) 105.2; Globulin 4.4 gm/dl (2.5-4.0); Potassium 3.7 mmol/L (3.5-5.1); Total Protein 6.2 gm/dl (6.4-8.2)
[2020-08-17 07:56] LABS: Basophils # (auto) 0.02 K/uL (0-0.2); Basophils % (auto) 0.3 %; Eosinophils # (auto) 0.26 K/uL (0-0.5); Eosinophils % (auto) 3.4 %; Immature Granulocytes # (auto) 0.56 K/uL (0.00-0.02); Immature Granulocytes % (auto) 7.2 %; Lymphocytes # (auto) 0.93 K/uL (1.2-3.4); Monocytes % (auto) 7.7 %; Neutrophils # (auto) 5.39 K/uL (1.4-6.5); Neutrophils % (auto) 69.4 %
[2020-08-17] MEDS: ZINC SULFATE 220 MG CAPSULE PO SCH (07:57)
[2020-08-17] MEDS: MESALAMINE 400 MG CAPDR PO SCH ×2 (07:57→13:27)
[2020-08-17] MEDS: levETIRAcetam 500 MG TAB PO SCH (07:57)
[2020-08-17] MEDS: CHOLECALCIFEROL 1,000 UNITS 25 MCG TAB PO SCH (07:57)
[2020-08-17] MEDS: DULoxetine HCL 30 MG CAP PO SCH (07:58)
[2020-08-17] MEDS: DABIGATRAN ETEXILATE 75 MG CAP PO SCH (07:58)
[2020-08-17] MEDS: FAMOTIDINE 20 MG TAB PO SCH (07:59)
[2020-08-17] MEDS: POTASSIUM CHLORIDE CRTAB 20 MEQ TABCR PO SCH (07:59)
[2020-08-17] MEDS: ASCORBIC ACID 500 MG TAB PO SCH (07:59)
[2020-08-17] MEDS: LIDOCAINE 5% 1 PATCH TD SCH (07:59)
[2020-08-17] MEDS: DOCUSATE SODIUM 100 MG CAP PO SCH (08:52)
[2020-08-17] MEDS: BACLOFEN 10 MG TAB PO SCH ×2 (08:52→13:26)
[2020-08-17] MEDS ORDERED: METOPROLOL SUCC 50MG EXT REL TAB PO SCH (09:00)
--- NOTE | 2020-08-17 09:01 | Hospitalist Progress Note ---
Date of Service August 16, 2020 Assessment & Plan (1) Atrial fibrillation with rapid ventricular response: Atrial fibrillation with RVR- The patient will be admitted to telemetry for serial cardiac enzymes, serial EKG's, cardiac rhythm monitoring and a 2-D Optimize potassium with oral and IV supplementation. Given Cardizem 25 mg IV bolus and presently on Cardizem drip at 5 mg/h, pt converted Cards recs for metoprolol ER daily. Dosage up-titrated today, 08/16. Increased pradaxa to 150mg BID for afib dosing ECHO with EF 60-65% Trop neg x4 (2) Hypokalemia: As above (3) History of recent stroke: History of recent hemorrhagic stroke/on dabigatran therapy- Plan would be for return to [facility] rehab after hospitalization Continue baclofen, duloxetine, gabapentin and Keppra. (4) On dabigatran therapy: See above (5) Diabetes mellitus: Placed on Accu-Cheks before meals and at bedtime with NovoLog coverage per scale (6) Depression: Continue duloxetine and gabapentin (7) Non-specific colitis: Continue mesalamine and prednisone. Hold on stress dose steroids for now Unfortunately, pt may need repeat PT/OT evals and repeat auth to return to [facility] despite being out of their facility for less than 12 hours. Awaiting determination from insurance on this, which will not be until tomorrow. (8) Anemia: Mild drop in Hb 8.9 (10.2 on admission) Possibly dilutional given tx the last few days, however pt was newly started on Pradaxa for her recent CVA and this dose was increased to cover her for future stroke proph related to her afib. Denies barbie bleeding/bruising Hemoccult pending Admission and Anticipated Discharge Date Admission Date: August 14, 2020 Subjective Alert and pleasant. Possible discharge back to [facility] today but it not might not be until tomorrow. She is now in normal sinus rhythm. Appreciate cardiology consultation. Metoprolol dosage has been uptitrated and she is tolerating Pradaxa. Review of Systems Review of Systems: Constitutional-no fever or chills ENT-no blurred vision, no double vision, no epistaxis, no sore throat Respiratory-no cough, no wheezing, no shortness of breath Cardiac-no palpitations, no chest pain, no syncope GI-no nausea, vomiting, diarrhea, melena, hematochezia -no urinary retention, no urinary incontinence, no dysuria, no hematuria Musculoskeletal-no joint pain, no muscle tenderness Skin-no bruising, no rashes, no pruritus Neuro-no isolated weakness, no paresthesia, no weakness Psych-no depression, no anxiety Physical Exam Constitutional: WD/WN, vitals as above Eyes: PERRL, conjunctivae normal, anicteric sclerae ENMT: external ear and nose normal, oropharynx normal Neck: trachea midline, no thyromegaly Respiratory: normal respiratory effort, lungs clear to auscultation Cardiovascular: RRR, no murmur, no edema Gastrointestinal (Abdomen): normal bowel sounds, soft, nontender, no hepatosplenomegaly Musculoskeletal: Extremities: extremities normal to inspection Skin: no rashes, warm and dry Psychiatric: A+Ox3, euthymic affect Genitourinary: no vaginal lesions, no adnexal mass Results & Data Results & Data ([facility]) Vital Signs (Past 12 Hours) Vital Signs Temp Pulse Pulse Resp BP Pulse Ox 08/17/20 08:10 37.0 C 85 18 104/65 95 08/17/20 04:11 36.8 C 91 H 16 97/57 L 96 08/16/20 23:56 86 08/16/20 23:27 36.8 C 87 18 109/68 96 PG Care Time/CCT Total # of Minutes Spent Total Time Spent with Patient: Total time spent is greater than 50% in coordination of care (as documented) at patient's floor/unit and/or counseling patient: Coding Level of Care Code 18429 Subseq Hosp Care Lvl 3 Diagnoses Atrial fibrillation with rapid ventricular response I48.91 Hypokalemia E87.6 History of recent stroke Z86.73 On dabigatran therapy Z79.01 Diabetes mellitus E11.9 Depression F32.9 Non-specific colitis K52.9 Anemia D64.9
[2020-08-17] MEDS ORDERED: predniSONE 10 MG TABLET PO SCH (09:15)
--- NOTE | 2020-08-17 11:03 | Hospitalist Progress Note ---
Date of Service August 17, 2020 Assessment & Plan (1) Atrial fibrillation with rapid ventricular response: Atrial fibrillation with RVR- The patient will be admitted to telemetry for serial cardiac enzymes, serial EKG's, cardiac rhythm monitoring and a 2-D Optimize potassium with oral and IV supplementation. Given Cardizem 25 mg IV bolus and presently on Cardizem drip at 5 mg/h, pt conv erted Cards recs for metoprolol ER daily. Dosage up-titrated today, 08/16. Increased pradaxa to 150mg BID for afib dosing ECHO with EF 60-65% Trop neg x4 (2) Hypokalemia: As above (3) History of recent stroke: History of recent hemorrhagic stroke/on dabigatran therapy- Plan would be for return to [facility] rehab after hospitalization Continue baclofen, duloxetine, gabapentin and Keppra. (4) On dabigatran therapy: See above (5) Diabetes mellitus: Placed on Accu-Cheks before meals and at bedtime with NovoLog coverage per scale (6) Depression: Continue duloxetine and gabapentin (7) Non-specific colitis: Continue mesalamine and prednisone. (8) Anemia: Mild drop in Hb 8.9 (10.2 on admission) Possibly dilutional given tx the last few days, however pt was newly started on Pradaxa for her recent CVA and this dose was increased to cover her for future stroke proph related to her afib. Denies barbie bleeding/bruising Hemoccult pending Disposition: Discharge to [facility] today, August 17 Admission and Anticipated Discharge Date Admission Date: August 14, 2020 Subjective Alert and pleasant. She remains in normal sinus rhythm. No new findings or pr oblems. She will be discharged to [facility] today. Review of Systems Review of Systems: Constitutional-no fever or chills ENT-no blurred vision, no double vision, no epistaxis, no sore throat Respiratory-no cough, no wheezing, no shortness of breath Cardiac-no palpitations, no chest pain, no syncope GI-no nausea, vomiting, diarrhea, melena, hematochezia -no urinary retention, no urinary incontinence, no dysuria, no hematuria Musculoskeletal-no joint pain, no muscle tenderness Skin-no bruising, no rashes, no pruritus Neuro-left hemiparesis from recent stroke Psych-no depression, no anxiety Physical Exam Physical Exam: General-alert and oriented x3, no fevers, no chills HEENT-head atraumatic and normocephalic, TMs intact bilaterally, pupils equal and reactive to light, extraocular muscles intact Neck-no lymphadenopathy or thyromegaly, trachea midline Chest-clear to auscultation percussion. No rales wheezing or rhonchi Cardiac-regular rate and rhythm, normal S1 and S2, no murmurs Abdomen-normal bowel sounds, nontender, no hepatosplenomegaly Extremities-no cyanosis, clubbing, or edema Neuro-cranial nerves II through XII intact, left hemiparesis from recent stroke Psych-normal affect, normal mood Results & Data Results & Data ([facility]) Vital Signs (Past 12 Hours) Vital Signs Temp Pulse Pulse Resp BP Pulse Ox 08/17/20 08:10 37.0 C 85 18 104/65 95 08/17/20 04:11 36.8 C 91 H 16 97/57 L 96 08/16/20 23:56 86 08/16/20 23:27 36.8 C 87 18 109/68 96 Laboratory Results 08/17/20 06:37 08/17/20 06:37 PG Care Time/CCT Total # of Minutes Spent Total Time Spent with Patient: Total time spent is greater than 50% in coordination of care (as documented) at patient's floor/unit and/or counseling patient: Coding Level of Care Code 71023 Subseq Hosp Care Lvl 3 Diagnoses Atrial fibrillation with rapid ventricular response I48.91 Hypokalemia E87.6 History of recent stroke Z86.73 On dabigatran therapy Z79.01 Diabetes mellitus E11.9 Depression F32.9 Non-specific colitis K52.9 Anemia D64.9
== END 2020-08-17 16:53 ==
LOC: ED 02:16 → SUATTDRO 04:49 → 2S 04:49 → EDINP 04:49 → INTOOBSV 04:49 → 2S 13:07